=== PATIENT | male | born 1990 | race Caucasian/White ===

== ENCOUNTER 2016-12-01 23:53 | Emergency (ER) | payer MEDICAID ==
[~2016-12-01] VITALS: Ht 167.6 cm; Wt 81.6 kg
[2016-12-02 00:03] VITALS: BP 120/76
[2016-12-02] MEDS ORDERED: KETOROLAC TROMETHAMINE INJ 30 MG/ML VIAL ONE (01:02)
[2016-12-02] MEDS ORDERED: HYDROMORPHONE 1 MG/1 ML DISP.SYRIN ONE (01:02)
[2016-12-02] MEDS: KETOROLAC TROMETHAMINE INJ 60 MG/2 ML VIAL IM ONE (01:12)
[2016-12-02] MEDS: HYDROMORPHONE 1 MG/1 ML DISP.SYRIN IM ONE (01:12)
== END 2016-12-02 01:41 | disposition home or self-care (01) ==
LOC: ER 23:59
DX: K61.1 Rectal abscess (principal)
CPT/HCPCS: A4606; J1170; J1885; Z7610

== ENCOUNTER 2021-08-02 14:18 | Emergency (ER) | payer MEDICAID ==
[~2021-08-02] VITALS: Ht 167.6 cm; Wt 90.7 kg
[2021-08-02 14:58] LABS: BASOPHILS # (AUTO) 0.1 K/uL (0.0-0.2); BASOPHILS % (AUTO) 0.7 % (0.0-2.0); EOSINOPHILS % (AUTO) 2.5 % (0.0-6.0); HEMATOCRIT 45 % (39-51); HEMOGLOBIN 15.4 g/dL (13.5-17.5); LYMPHOCYTES # (AUTO) 2.8 K/uL (0.8-4.8); LYMPHOCYTES % (AUTO) 27.3 % (20.0-44.0); MEAN CORPUSCULAR HGB CONC 34 g/dl (31.0-36.0); MEAN CORPUSCULAR VOLUME 81 fL (80-96); MONOCYTES # (AUTO) 0.7 K/uL (0.1-1.30); MONOCYTES % (AUTO) 7.1 % (2.0-12.0); NEUTROPHILS # (AUTO) 6.5 K/uL (1.8-8.9); NEUTROPHILS % (AUTO) 62.4 % (43.0-81.0); PLATELET COUNT (AUTO) 298 K/uL (150-450); RED BLOOD CELL COUNT(AUTO) 5.55 MIL/uL (4.5-6.0); WHITE BLOOD COUNT (AUTO) 10.4 K/uL (4.3-11.0)
[2021-08-02] MEDS ORDERED: EMTRICITABINE/TENOFOVIR 1 TAB PO ONE (15:00)
[2021-08-02 15:10] LABS: CALCIUM, SERUM 8.7 mg/dL (8.5-10.1); CREATININE 0.9 mg/dL (0.6-1.3); POTASSIUM 3.9 mmol/L (3.5-5.1)
[2021-08-02] MEDS: RALTEGRAVIR POTASSIUM 400 MG TABLET PO ONE (15:13)
[2021-08-02] MEDS: EMTRICITABINE 200 MG CAPSULE PO ONE (15:13)
[2021-08-02] MEDS: TENOFOVIR DISOPROXIL FUMARATE 300 MG TABLET PO ONE (15:13)
[2021-08-02 15:16] LABS: ALBUMIN 4.1 g/dL (3.4-5.0); BILIRUBIN,DIRECT 0.1 mg/dL (0.0-0.2); BILIRUBIN,TOTAL 0.5 mg/dL (0.2-1.0); TOTAL PROTEIN, SERUM 8.3 g/dL (6.4-8.2)
[2021-08-02] MEDS ORDERED: EMTR1TAB12 PO (16:07)
[2021-08-02] MEDS ORDERED: RALT400T PO (16:07)
[2021-08-02 16:17] VITALS: BP 135/81
--- NOTE | 2021-08-02 16:19 | NUR ---
Patient discharged to home in stable condition. Written and verbal after care instructions given. Patient verbalizes understanding of instruction.
== END 2021-08-02 16:18 | disposition home or self-care (01) ==
LOC: ER 14:22
DX: S61.230A Puncture wound without foreign body of right index finger without damage to nail, initial encounter (principal); R10.32 Left lower quadrant pain; Z60.2 Problems related to living alone; W46.0XXA Contact with hypodermic needle, initial encounter; Y93.89 Activity, other specified; Y92.89 Other specified places as the place of occurrence of the external cause; Y99.8 Other external cause status
CPT/HCPCS: 36415; 80048-TC; 80076-TC; 83690-TC; 85025-TC; 86706; 86803; 87340; 87806

== ENCOUNTER 2021-09-17 13:44 | Emergency (ER) | payer MEDICAID ==
[~2021-09-17] VITALS: Ht 170.2 cm; Wt 104.3 kg
[~2021-09-17 13:44] MED LIST: EMTR1TAB12 PO; RALT400T PO
--- NOTE | 2021-09-17 14:08 | NUR ---
THE PATIENT BIBS FOR C/O SORETHROAT X3 DAYS & EYE REDNESS. IN ROOM AIR AND DENIES SOB. RESPIRATION REGULAR AND UNLABORED. WILL CONTINUE TO MONITOR.
[2021-09-17 15:51] LABS: BASOPHILS % (AUTO) 0.7 % (0.0-2.0); EOSINOPHILS % (AUTO) 3.1 % (0.0-6.0); HEMATOCRIT 45 % (39-51); HEMOGLOBIN 15.4 g/dL (13.5-17.5); LYMPHOCYTES # (AUTO) 1.8 K/uL (0.8-4.8); LYMPHOCYTES % (AUTO) 34.4 % (20.0-44.0); MEAN CORPUSCULAR HGB CONC 35 g/dl (31.0-36.0); MEAN CORPUSCULAR VOLUME 82 fL (80-96); MONOCYTES # (AUTO) 0.5 K/uL (0.1-1.30); MONOCYTES % (AUTO) 9.1 % (2.0-12.0); NEUTROPHILS # (AUTO) 2.7 K/uL (1.8-8.9); NEUTROPHILS % (AUTO) 52.7 % (43.0-81.0); PLATELET COUNT (AUTO) 274 K/uL (150-450); RED BLOOD CELL COUNT(AUTO) 5.45 MIL/uL (4.5-6.0); WHITE BLOOD COUNT (AUTO) 5.2 K/uL (4.3-11.0)
--- NOTE | 2021-09-17 16:06 | NUR ---
COVID SWAB AND FLU SWAB DONE AND SENT TO LAB
[2021-09-17 16:15] LABS: CALCIUM, SERUM 8.8 mg/dL (8.5-10.1); CREATININE 0.9 mg/dL (0.6-1.3)
[2021-09-17 16:28] LABS: ALBUMIN 3.9 g/dL (3.4-5.0); BILIRUBIN,TOTAL 0.5 mg/dL (0.2-1.0)
--- NOTE | 2021-09-17 16:38 | NUR ---
Patient discharged to home in stable condition. Written and verbal after care instructions given. Patient verbalizes understanding of instruction.
[2021-09-17 16:39] VITALS: BP 123/75
--- NOTE | 2021-09-17 17:53 | NUR ---
THE PATIENT IS MADE AWARE THAT HE IS COVID POSITVE, EDUCATION PROVIDED AND HE VERBALIZED UNDERSTANDING.
== END 2021-09-17 16:39 | disposition home or self-care (01) ==
LOC: ER 14:00
DX: U07.1 COVID-19 (principal); J02.9 Acute pharyngitis, unspecified
CPT/HCPCS: 36415; 71045; 80053; 85025; 87426; 87804; 99284; C9803